=== PATIENT | male | born 1975 | race Hispanic/Latino ===

== ENCOUNTER 2019-12-31 14:20 | Emergency (ER) | payer SELFPAY ==
--- NOTE | 2019-12-31 17:12 | EDPHYS ---
Physician Documentation [facility] Name: Gil Schumacher Age: 44 yrs Sex: Male : 1975 Arrival Date: 12/31/2019 Time: 14:23 Bed 26 Private MD: ED Physician Warren Danielle HPI: 12/31 17:27 This 44 yrs old Male presents to ER via Ambulatory with complaints of Foot snw Pain. 17:27 The patient presents with pain, that is acute. The complaints affect the heel of left snw foot. Context: The problem was sustained at an unknown site, resulted from an unknown cause, the patient can partially bear weight, the patient is able to ambulate, with mild difficulty, Problem is a result from a previous injury: No. Onset: The symptoms/episode began/occurred gradually, 2 month(s) ago, and became persistent. Associated signs and symptoms: The patient has no apparent associated signs or symptoms. Treatment prior to arrival includes: steroid injection x 1. Severity of symptoms: At their worst the symptoms were moderate. It is unknown whether or not the patient has had similar symptoms in the past. It is unknown whether or not the patient has recently seen a physician. Historical: - Allergies: 14:39 No Known Allergies; aj1 - Home Meds: 14:39 None [Active]; aj1 - PMHx: 14:39 None; aj1 - PSHx: 14:39 None; aj1 - Immunization history:: Flu vaccine is not up to date. - Coronavirus screen:: The patient has NOT traveled to [place] in the past 14 days. - Social history:: Smoking status: Patient/guardian denies using tobacco. - Ebola Screening: : Patient denies travel to an Ebola-affected area in the 21 days before illness onset. ROS: 17:26 Constitutional: Negative for fever, chills, and weight loss, Eyes: Negative for injury, snw pain, redness, and discharge, ENT: Negative for injury, pain, and discharge, Neck: Negative for injury, pain, and swelling, Cardiovascular: Negative for chest pain, palpitations, and edema, Respiratory: Negative for shortness of breath, cough, wheezing, and pleuritic chest pain, Abdomen/GI: Negative for abdominal pain, nausea, vomiting, diarrhea, and constipation, Back: Negative for injury and pain, : Negative for injury, bleeding, discharge, and swelling, Skin: Negative for injury, rash, and discoloration, Neuro: Negative for headache, weakness, numbness, tingling, and seizure, Psych: Negative for depression, anxiety, suicide ideation, homicidal ideation, and hallucinations. 17:26 MS/extremity: Positive for pain, of the heel of left foot, x several months. Exam: 17:25 Constitutional: This is a well developed, well nourished patient who is awake, alert, snw and in no acute distress. Head/Face: Normocephalic, atraumatic. Eyes: Pupils equal round and reactive to light, extra-ocular motions intact. Lids and lashes normal. Conjunctiva and sclera are non-icteric and not injected. Cornea within normal limits. Periorbital areas with no swelling, redness, or edema. ENT: Nares patent. No nasal discharge, no septal abnormalities noted. Tympanic membranes are normal and external auditory canals are clear. Oropharynx with no redness, swelling, or masses, exudates, or evidence of obstruction, uvula midline. Mucous membranes moist. Neck: Trachea midline, no thyromegaly or masses palpated, and no cervical lymphadenopathy. Supple, full range of motion without nuchal rigidity, or vertebral point tenderness. No Meningismus. Chest/axilla: Normal chest wall appearance and motion. Nontender with no deformity. No lesions are appreciated. Cardiovascular: Regular rate and rhythm with a normal S1 and S2. No gallops, murmurs, or rubs. Normal PMI, no JVD. No pulse deficits. Respiratory: Lungs have equal breath sounds bilaterally, clear to auscultation and percussion. No rales, rhonchi or wheezes noted. No increased work of breathing, no retractions or nasal flaring. Abdomen/GI: Soft, non-tender, with normal bowel sounds. No distension or tympany. No guarding or rebound. No evidence of tenderness throughout. Back: No spinal tenderness. No costovertebral tenderness. Full range of motion. Skin: Warm, dry with normal turgor. Normal color with no rashes, no lesions, and no evidence of cellulitis. Neuro: Awake and alert, GCS 15, oriented to person, place, time, and situation. Cranial nerves II-XII grossly intact. Motor strength 5/5 in all extremities. Sensory grossly intact. Cerebellar exam normal. Normal gait. Psych: Awake, alert, with orientation to person, place and time. Behavior, mood, and affect are within normal limits. 17:25 Musculoskeletal/extremity: Extremities: grossly normal except: noted in the heel of left foot: tenderness, ROM: intact in all extremities, Circulation is intact in all extremities. Severe pain noted. Vital Signs: 14:39 BP 120 / 85; Pulse 71; Resp 16; Temp 98.0; Pulse Ox 99% on R/A; Weight 86.18 kg (R); aj1 Height 5 ft. 6 in. (167.64 cm) (R); Pain 7/10; 17:00 BP 126 / 84; Pulse 70; Resp 16; Pulse Ox 100% on R/A; vc 14:39 Body Mass Index 30.67 (86.18 kg, 167.64 cm) aj1 MDM: 16:57 Patient medically screened. snw 17:27 Data reviewed: vital signs, nurses notes. Data interpreted: Pulse oximetry: on room air snw is 99 %. Interpretation: normal. Counseling: I had a detailed discussion with the patient and/or guardian regarding: the historical points, exam findings, and any diagnostic results supporting the discharge/admit diagnosis, the presence of at least one elevated blood pressure reading (>120/80) during this emergency department visit, to return to the emergency department if symptoms worsen or persist or if there are any questions or concerns that arise at home. Administered Medications: 17:24 Drug: Motrin 400 mg Route: PO; vc Disposition: 17:54 Co-signature as Attending Physician, Warren Danielle MD. rn Disposition: 12/31/19 17:12 Discharged to Home. Impression: Pain in left foot. - Condition is Stable. - Discharge Instructions: Musculoskeletal Pain, Cryotherapy, Heat Therapy. - Prescriptions for Mobic 7.5 mg Oral Tablet - take 1 tablet by ORAL route once daily take with food; 20 tablet. - Medication Reconciliation Form, Thank You Letter, Antibiotic Education, Prescription Opioid Use form. - Follow up: Emergency Department; When: As needed; Reason: Worsening of condition. Follow up: Private Physician; When: 2 - 3 days; Reason: Recheck today's complaints, Continuance of care, Re-evaluation by your physician. Signatures: Elva Pickens RN RN aj1 Erika Ruffin, LUMBER HANDLER-C LUMBER HANDLER-Csnw Warren Danielle MD MD rn Calcote, Vanessa, RN RN vc Corrections: (The following items were deleted from the chart) 17:29 17:12 12/31/2019 17:12 Discharged to Home. Impression: Pain in left foot. Condition is vc Stable. Forms are Medication Reconciliation Form, Thank You Letter, Antibiotic Education, Prescription Opioid Use. Follow up: Emergency Department; When: As needed; Reason: Worsening of condition. Follow up: Private Physician; When: 2 - 3 days; Reason: Recheck today's complaints, Continuance of care, Re-evaluation by your physician. snw
--- NOTE | 2019-12-31 17:12 | ER ---
Nurse's Notes [facility] Name: Gil Schumacher Age: 44 yrs Sex: Male : 1975 Arrival Date: 12/31/2019 Time: 14:23 Bed 26 Private MD: Diagnosis: Pain in left foot Presentation: 12/31 14:38 Presenting complaint: Patient states: Left heel pain for the past month, he saw his aj1 doctor and they put a shot in his heel, but it is still hurting. Denies any recent injury. Transition of care: patient was not received from another setting of care. Onset of symptoms was 2019. Risk Assessment: Do you want to hurt yourself or someone else? Patient reports no desire to harm self or others. Initial Sepsis Screen: Does the patient meet any 2 criteria? No. Patient's initial sepsis screen is negative. Does the patient have a suspected source of infection? No. Patient's initial sepsis screen is negative. Care prior to arrival: None. 14:38 Method Of Arrival: Ambulatory [facility] 14:38 Acuity: SHIREEN 5 aj Triage Assessment: 14:39 General: Appears in no apparent distress. comfortable, Behavior is calm, cooperative, aj1 appropriate for age. Pain: Pain currently is 7 out of 10 on a pain scale. Neuro: Level of Consciousness is awake, alert, obeys commands. Cardiovascular: Patient's skin is warm and dry. Respiratory: Airway is patent Respiratory effort is even, unlabored, Respiratory pattern is regular, symmetrical. Historical: - Allergies: 14:39 No Known Allergies; aj - Home Meds: 14:39 None [Active]; aj1 - PMHx: 14:39 None; aj - PSHx: 14:39 None; aj1 - Immunization history:: Flu vaccine is not up to date. - Coronavirus screen:: The patient has NOT traveled to [place] in the past 14 days. - Social history:: Smoking status: Patient/guardian denies using tobacco. - Ebola Screening: : Patient denies travel to an Ebola-affected area in the 21 days before illness onset. Screenin:00 Abuse screen: Denies threats or abuse. Nutritional screening: No deficits noted. vc Tuberculosis screening: No symptoms or risk factors identified. Fall Risk None identified. Assessment: 17:00 General: Appears in no apparent distress. uncomfortable, Behavior is calm, cooperative, vc appropriate for age. Pain: Complains of pain in left foot. Neuro: Level of Consciousness is awake, alert, obeys commands. Cardiovascular: Capillary refill < 3 seconds. Respiratory: Respiratory effort is even, unlabored, Respiratory pattern is regular, symmetrical. GI: No signs and/or symptoms were reported involving the gastrointestinal system. : No signs and/or symptoms were reported regarding the genitourinary system. Derm: No signs and/or symptoms reported regarding the dermatologic system. Musculoskeletal: No signs and/or symptoms reported regarding the musculoskeletal system. Vital Signs: 14:39 BP 120 / 85; Pulse 71; Resp 16; Temp 98.0; Pulse Ox 99% on R/A; Weight 86.18 kg (R); aj1 Height 5 ft. 6 in. (167.64 cm) (R); Pain 7/10; 17:00 BP 126 / 84; Pulse 70; Resp 16; Pulse Ox 100% on R/A; vc 14:39 Body Mass Index 30.67 (86.18 kg, 167.64 cm) aj1 ED Course: 14:23 Patient arrived in ED. as 14:39 Triage completed. aj1 14:39 Arm band placed on Patient placed in waiting room, Patient notified of wait time. aj1 15:35 Erika Ruffin F[facility]-C [facility]. snw 15:35 Warren Danielle MD is Attending Physician. snw 17:00 Patient has correct armband on for positive identification. vc 17:00 No provider procedures requiring assistance completed. Patient did not have IV access vc during this emergency room visit. 17:01 Daniela Recinos RN is Primary Nurse. vc Administered Medications: 17:24 Drug: Motrin 400 mg Route: PO; vc Outcome: 17:12 Discharge ordered by . snw 17:25 Discharged to home ambulatory, with family, with significant other. vc 17:25 Condition: good 17:25 Discharge instructions given to significant other, Instructed on discharge instructions, follow up and referral plans. medication usage, Demonstrated understanding of instructions, follow-up care, medications, Prescriptions given X 1. 17:29 Patient left the ED. vc Signatures: Elva Pickens RN RN aj1 Erika Ruffin FNP-C FNP-Jeanna Beardia as Grisel, Daniela, RN RN vc
[2019-12-31] MEDS ORDERED: IBUPROFEN 400 MG TAB ONE (17:25)
[2019-12-31 17:44] VITALS: BP 120/85; TEMP 98; O2SAT 99
== END 2019-12-31 17:29 | disposition home or self-care (01) ==
LOC: ER 14:20
DX: M79.672 Pain in left foot (principal)
CPT/HCPCS: 99283